=== PATIENT | male | born 1995 | race African-American/Black ===

== ENCOUNTER 2024-02-20 18:33 | Emergency (ER) | payer OTHER, SELFPAY ==
[2024-02-20 18:36] VITALS: BP 149/91
--- NOTE | 2024-02-20 19:34 | ED.GENMED ---
History of Present Illness
General
Chief Complaint: Crisis Evaluation
Source: patient
Exam Limitations: none
Time Seen by Provider: 02/20/24 18:56
Nursing documentation reviewed up to this point in time: agreed with
History of Present Illness
History of Present Illness:
Patient is a 28-year-old male with a history of bipolar 1 with psychotic features who presents to the emergency department feeling as if he is becoming psychotic again. Patient's on Zyprexa and states his dose feels too high. Patient states the
psychosis is triggered by his homelessness. Patient has been hospitalized for this in the past. Patient denies any recent substance abuse. Patient has had substance abuse in the past. Patient is losing weight. Patient denies any recent
illnesses or injuries.
Past History
Past History
ED Past Medical History: Psychiatric
Social History
Living: homeless
Review of Systems
Review of Systems
All Other Systems: ROS reviewed and negative except as documented in HPI and ROS
Constitutional: Reports weight loss; Denies fever or chills
EENT: Reports no symptoms
Respiratory: Reports no symptoms
Cardiac: Reports no symptoms
ABD/GI: Reports no symptoms
: Reports no symptoms
Musculoskeletal: Reports no symptoms
Skin: Reports no symptoms
Neurological: Reports no symptoms
Hematologic/Lymphatic: Reports no symptoms
Psychiatric: Reports other (Psychosis); Denies hallucinations
Phy Exam
Physical Exam
Physical Exam:
Physical Exam
General: No apparent distress, alert, thin, well hydrated
HENT: Normocephalic, supple with no lymphadenopathy, no thyromegaly
Eyes: Clear sclera, conjuctiva without injection
Heart: Regular rhythm and rate. No S3, S4. No murmur.
Lungs: No respiratory distress, no stridor, lung sounds clear and equal bilaterally
Abdomen: Soft, nontender, no organomegaly, BS good
Neuro: Alert and oriented x 3, CN II - XII intact, no motor focality, no cerebellar dysfunction
Skin: no rash
Psychiatric: well kept. interactive and cooperative. Restless and mildly agitated
Extremities: No edema, cyanosis, tenderness
Course
Orders/Labs/Results
Orders:
Orders
02/20/24 19:34
Crisis Consult Routine
Reason for Consult: Patient began to experience psychosis
02/20/24 20:52
Alcohol Urgent
Complete Blood Count/With Diff Urgent
Comprehensive Metabolic Panel Urgent
Urine Drug Abuse Screen Urgent
Vital Signs
Initial and Last Documented VS:
Initial Vital Signs
Temp Pulse Resp BP Pulse Ox
98.3 F 68 20 149/91 99
02/20/24 18:36 02/20/24 18:36 02/20/24 18:36 02/20/24 18:36 02/20/24 18:36
Last Documented Vital Signs
Temp Pulse Resp BP Pulse Ox
98.3 F 68 20 149/91 99
02/20/24 18:36 02/20/24 18:36 02/20/24 18:36 02/20/24 18:36 02/20/24 18:36
*Pulse Oximetry
Patient hypoxic: no
*EKG
Interpreted by ED Provider?: NA
*Executive Director Of Nursing Interpretation
Rate: Executive Director Of Nursing- N/A
*Critical Care Note
Total Time (30-74mins, 75-104mins- exclusive of procedures): Not Applicable
ED Attending Note
-
Portions of this chart may have been created with voice recognition software.� Occasional wrong word or��sound alike� substitutions may have occurred due to the inherent limitations of voice recognition software.
Discharge Plan
Departure
Patient Disposition: Psych Facility
Date of Disposition: 02/20/24
Time of Disposition: 20:53
Patient Status:: 201
Patient with high blood pressure during this ER visit?: Yes
Condition: Fair
Discharge Problem:
Psychosis
Referrals:
NONE,* [Family Provider] -
Interventions
Interventions:
*Risk Screen - Suicide Last Done: 02/20/24 18:39
*General Assessment Last Done: 02/20/24 18:36
*Neglect/Abuse Screening Last Done: 02/20/24 18:39
Discharge Date and Time
Print Language: NIUEAN
--- NOTE | 2024-02-20 21:30 | EDRN ---
After doing patients blood work, i left the room, the security coordinator reported that he crouched down in a ball in the corner and grabbing his own arm, crying hysterical, reports feels like he missed meds, went in and spoke with patient who is crying
at this time and apologizing, informed patient nothing to be sorry about its okay and what meds does he feel like he's missing, states he normally takes 10 mg of zyprexa at night, informed Dr. Holliday and meds were ordered and given. Patient
cooperative, patient also has a duffle bag on him, went through duffle bag with patient and security at bedside, patient has clothing, books, phone, wallet, chargers, and a computer. Patient cooperative through this entire process.
[2024-02-20 21:36] LABS: % Basophils 0.6 % (0-2); % Eosinophils 0.6 % (0-6); % Immature Granulocytes 0.2 % (0-0.5); % Lymphocytes 29.1 % (20.5-51.1); % Neutrophils 62.5 % (42.2-75.2); Absolute Lymphocytes 1.8 10^3/uL (1.2-3.4); Absolute Monocytes 0.4 10^3/uL (0.1-0.6); Absolute Neutrophils 3.9 10^3/uL (1.4-6.5); Hemoglobin 13.1 g/dL (13.0-18.0); Mean Corp Hgb Conc. 33.6 g/dL (33.0-37.0); Mean Corpuscular Hgb 27.3 pg (27.0-31.0); Mean Corpuscular Volume 81.4 fL (80.0-94.0); Mean Platelet Volume 10.3 fL (7.4-10.4); Nucleated Red Blood Cells % 0 % (-); Platelet Count 207 10^3/uL (130-400); Red Blood Cell Count 4.79 10^6/uL (4.70-6.10); Red Cell Dist. Width 12.7 % (11.5-14.5); White Blood Cell Count 6.3 10^3/uL (4.8-10.8)
[2024-02-20] MEDS: ZYPREXA 10 MG PO (21:57)
[2024-02-20 22:02] LABS: ALT (SGPT) 19 U/L (0-50); AST (SGOT) 25 U/L (17-59); Albumin 4.7 g/dl (3.5-5.0); Alkaline Phosphatase 49 U/L (38-126); Blood Urea Nitrogen 6 mg/dl (9-20); Calcium 10.1 mg/dl (8.4-10.2); Carbon Dioxide 26 mmol/L (22-30); Chloride 101 mmol/L (98-107); Glucose 129 mg/dl (70-99); Potassium 3.7 mmol/L (3.5-5.1); Sodium 139 mmol/L (135-145); Total Bilirubin 0.9 mg/dl (0.2-1.3); Total Protein 7.1 g/dl (6.3-8.2); eGFR > 60.00
[2024-02-20 22:03] LABS: Alcohol None Detected
--- NOTE | 2024-02-20 23:00 | EDRN ---
Patient is resting comfortably at this time, will continue to monitor
[2024-02-21 05:08] LABS: Amphetamines Negative (Negative); Barbiturates Negative (Negative); Benzodiazepines Negative (Negative); Buprenorphine Negative (Negative); Cocaine Negative (Negative); Marijuana Positive (Negative); Methadone Negative (Negative); Methamphetamines Negative (Negative); Opiates Negative (Negative); Phencyclidine Negative (Negative)
[2024-02-21 05:09] LABS: Tricyclic Antidepressants Negative (Negative)
== END 2024-02-21 07:10 ==
LOC: EMR 18:33
PROVIDERS: EMERGENCY PHYSICIAN Emergency Medicine
DX: F29 Unspecified psychosis not due to a substance or known physiological condition (principal); Z59.00 Homelessness unspecified
CPT/HCPCS: 99283; 80053; 80306; 82077; 85025